=== PATIENT | male | born 1975 | race Two or more races ===

== ENCOUNTER 2019-03-24 15:17 | Emergency (ER) | payer OTHER, MEDICAID ==
[~2019-03-24] VITALS: Ht 172.7 cm; Wt 74.8 kg
[2019-03-24 16:12] VITALS: BP 128/84
== END 2019-03-24 17:46 | disposition home or self-care (01) ==
LOC: ER 15:25
DX: S39.012A Strain of muscle, fascia and tendon of lower back, initial encounter (principal); V49.9XXA Car occupant (driver) (passenger) injured in unspecified traffic accident, initial encounter; Y93.89 Activity, other specified; Y92.89 Other specified places as the place of occurrence of the external cause; Y99.8 Other external cause status